=== PATIENT | male | born 1945 | race Caucasian/White ===

== ENCOUNTER 2016-06-06 04:00 | Inpatient (IN) | payer MEDICARE, OTHER ==
[~2016-06-06] VITALS: Ht 170.2 cm; Wt 67.0 kg
[2016-06-06] MEDS ORDERED: TRAVZOS OU (04:13)
[2016-06-06] MEDS ORDERED: LEVO88TA4 PO (04:13)
[2016-06-06] MEDS ORDERED: BRIM15OS OU (04:13)
[2016-06-06] MEDS ORDERED: FEBU40T PO (04:13)
[2016-06-06] MEDS ORDERED: BRINOS OU (04:13)
[2016-06-06] MEDS ORDERED: GLIP2.5ER PO (04:13)
[2016-06-06] MEDS ORDERED: TAMS0.4C32 PO (04:13)
[2016-06-06] MEDS ORDERED: DUTA.5 PO (04:13)
[2016-06-06] MEDS ORDERED: RANI150T7 PO (04:13)
[2016-06-06] MEDS ORDERED: PANT40TA25 PO (04:13)
[2016-06-06] MEDS ORDERED: ALPR0.5T8 PO (04:13)
[2016-06-06] MEDS ORDERED: GABA-529 PO (04:13)
[2016-06-06 04:33] LABS: BASOPHILS % (AUTO) 0.4 % (0.0-2.0); EOSINOPHILS % (AUTO) 3.4 % (1.0-6.0); HEMATOCRIT 26.6 % (41-53); HEMOGLOBIN 8.8 g/dL (13.5-17.5); LYMPHOCYTES # (AUTO) 1.2 K/uL (1.0-4.8); LYMPHOCYTES % (AUTO) 16.2 % (22.0-44.0); MEAN CORPUSCULAR HEMOGLOBIN 31.6 pg (26.0-34.0); MEAN CORPUSCULAR HGB CONC 33.2 G/dL (31.0-37.0); MEAN CORPUSCULAR VOLUME 95 fL (80-100); MONOCYTES # (AUTO) 0.6 K/uL (0.1-1.0); MONOCYTES % (AUTO) 7.9 % (2.0-9.0); NEUTROPHILS # (AUTO) 5.4 K/uL (1.8-7.7); NEUTROPHILS % (AUTO) 72.1 % (40.0-70.0); PLATELET COUNT (AUTO) 153 K/uL (150-450); RED CELL DISTRIBUTION WIDTH 13.7 % (11.5-14.5); WHITE BLOOD COUNT (AUTO) 7.5 K/uL (4.5-11.0)
[2016-06-06 04:39] LABS: CREATININE 1.97 mg/dL (0.60-1.30); POTASSIUM 4.6 mmol/L (3.5-5.1)
[2016-06-06 04:45] LABS: ALBUMIN 3.1 g/dL (3.4-5.0); BILIRUBIN,TOTAL 0.2 mg/dL (0.1-1.0); TOTAL PROTEIN, SERUM 6.5 g/dL (6.4-8.2)
[2016-06-06 05:17] LABS: LACTIC ACID 0.8 mmol/L (0.4-2.0)
[2016-06-06] MEDS ORDERED: DEXTROSE 50%-WATER 25 GM/50 ML SYRINGE IVP ONE ×2 (05:30→05:45)
[2016-06-06 05:34] LABS: GLUCOSE,POINT OF CARE 45 MG/DL (70-110)
[2016-06-06] MEDS ORDERED: DEXTROSE 10%-WATER 1,000 ML IV ONE (06:00)
[2016-06-06] MEDS ORDERED: 0.9% SODIUM CHLORIDE 10 ML SYRINGE IVP PRN (06:00)
[2016-06-06] MEDS ORDERED: ONDANSETRON HCL 4 MG/2 ML VIAL IVP PRN (06:00)
[2016-06-06] MEDS ORDERED: ACETAMINOPHEN 325 MG TABLET PO PRN (06:00)
[2016-06-06 06:08] LABS: GLUCOSE,POINT OF CARE 85 MG/DL (70-110)
[2016-06-06 06:51] LABS: GLUCOSE,POINT OF CARE 81 MG/DL (70-110)
[2016-06-06 07:05] LABS: GLUCOSE,POINT OF CARE 77 MG/DL (70-110)
[2016-06-06 07:50] LABS: GLUCOSE,POINT OF CARE 88 MG/DL (70-110)
[2016-06-06 09:28] VITALS: BP 148/95
[2016-06-06 11:23] VITALS: BP 127/61
[2016-06-06 12:31] LABS: GLUCOSE,POINT OF CARE 75 MG/DL (70-110)
[2016-06-06 15:39] VITALS: BP 134/65
[2016-06-06 18:16] LABS: GLUCOSE,POINT OF CARE 87 MG/DL (70-110)
[2016-06-06 19:11] VITALS: BP 115/49
[2016-06-06] MEDS ORDERED: HYDROCODONE/ACETAMINOPHEN 5-325 MG TABLET PO PRN ×2 (21:15)
[2016-06-06 21:22] LABS: GLUCOSE,POINT OF CARE 124 MG/DL (70-110)
[2016-06-07] VITALS: BP 125/63
[2016-06-07] MEDS ORDERED: LEVOTHYROXINE SODIUM 88 MCG TABLET PO ONE (07:00)
[2016-06-07] MEDS ORDERED: PANTOPRAZOLE SODIUM 40 MG DR TABLET PO SCH (07:00)
[2016-06-07 07:25] VITALS: BP 129/75
[2016-06-07 07:26] LABS: GLUCOSE,POINT OF CARE 102 MG/DL (70-110)
[2016-06-07] MEDS ORDERED: BRIMONIDINE TARTRATE 0.1% 5 ML OPHTHALMIC SOLUTION OU SCH (09:00)
[2016-06-07] MEDS ORDERED: FEBUXOSTAT 40 MG TABLET PO SCH (09:00)
[2016-06-07] MEDS ORDERED: BRINZOLAMIDE 1% 10 ML OPHTHALMIC SUSPENSION OU SCH (09:00)
[2016-06-07] MEDS ORDERED: RANITIDINE HCL 150 MG TABLET PO SCH (09:00)
[2016-06-07] MEDS: GABAPENTIN 100 MG CAPSULE PO SCH ×2 (09:00→16:47)
[2016-06-07] MEDS ORDERED: TRAVOPROST-Z 0.004% 2.5 ML OPHTHALMIC SOLUTION OU SCH (09:00)
[2016-06-07 11:37] LABS: GLUCOSE,POINT OF CARE 106 MG/DL (70-110)
[2016-06-07 12:01] VITALS: BP 101/55
[2016-06-07 15:45] VITALS: BP 112/53
[2016-06-07 17:01] LABS: GLUCOSE,POINT OF CARE 117 MG/DL (70-110)
[2016-06-07] MEDS ORDERED: TAMSULOSIN HCL 0.4 MG CAPSULE PO SCH (21:00)
[2016-06-07] MEDS ORDERED: DUTASTERIDE 0.5 MG CAPSULE PO SCH (21:00)
[2016-06-07] MEDS ORDERED: ALPRAZolam 0.5 MG TABLET PO SCH (21:00)
[2016-06-08] MEDS ORDERED: GlipiZIDE ER 2.5 MG ER TABLET PO SCH (06:30)
[2016-06-08] MEDS ORDERED: LEVOTHYROXINE SODIUM 88 MCG TABLET PO SCH (06:30)
== END 2016-06-07 19:55 | DRG 637 ==
LOC: EMS 04:03 → 6N 07:13
PROVIDERS: ADMIT Hospitalist; ATTEND Hospitalist
DX: E11.649 Type 2 diabetes mellitus with hypoglycemia without coma (principal); G93.41 Metabolic encephalopathy; N17.9 Acute kidney failure, unspecified; G89.29 Other chronic pain; M54.5 Low back pain; K21.9 Gastro-esophageal reflux disease without esophagitis; E03.9 Hypothyroidism, unspecified; H40.9 Unspecified glaucoma; F41.9 Anxiety disorder, unspecified; M10.9 Gout, unspecified; M41.9 Scoliosis, unspecified; N40.0 Benign prostatic hyperplasia without lower urinary tract symptoms; D64.9 Anemia, unspecified; S61.511A Laceration without foreign body of right wrist, initial encounter; W19.XXXA Unspecified fall, initial encounter; Z98.890 Other specified postprocedural states; Z79.899 Other long term (current) drug therapy; Z98.1 Arthrodesis status; Y93.89 Activity, other specified; Y92.121 Bathroom in nursing home as the place of occurrence of the external cause; Y99.8 Other external cause status
CPT/HCPCS: 70450; 82962; 83605; 87040; 87081; 93005; 96361; 96374; 99285